=== PATIENT | male | born 1950 | race Caucasian/White ===

== ENCOUNTER 2021-03-05 17:41 | Inpatient (IN) | payer MEDICARE, OTHER ==
[2021-03-05] MEDS: Diltiazem 100 MG in Sodium Chloride 0.9% 100 ML IV SCH (20:03)
--- NOTE | 2021-03-05 20:38 | PN ---
THC Physician - Brief Progress KfjyLZXYKYDBY89/08/2021 20:29[facility] Kaley Ramos, [place] - LOLISN [facility] - LOLISN MOISESALFA NiceDonteDate of Service 03/05/2021 20:29HPI/Events of Note Brief eICU Admit NoteEMR reviwed, H&P pending. ED note reviewed, patient directly admitted [facility].70yo male h/o HTN, DM who presented to ED with SOB and palpitations. Dx with new on set afib with RVR and CHF. Started on diltiazem drip, currently rate controlled on 5. Given Lasix i n ED. I cannot see imaging. TSH at outside ED is normal. Covid neg, s/p vaccine x3.Patient seen on camera: obese older male lying in bed on RA in NAD, able to interact with bedside staff easilyP 80s- 90s irreg 140/89 22Recommend:Follow I/O, consider more diuresis if the patient becomes SOB or require s supplemental oxygen.Cycle troponins.Recheck K and Mg after diuresis.Rate control for goal HR <110.C onsider anticoagulation.Echo.Please contact us if we may be of assistance.Interventions Major-Arrhyth corie - evaluation and management
[2021-03-05] MEDS ORDERED: Glucagon,Human Recombinant 1 MG Vial IM PRN (22:38)
[2021-03-05] MEDS ORDERED: 50% Dextrose in Water 50 ML Syringe IVPUSH PRN (22:38)
--- NOTE | 2021-03-05 22:49 | PCM.HP.2 ---
H&P History of Present Illness - General Date of Service: 03/05/21 Admit Problem/Dx: Admission Diagnosis/Problem Admission Diagnosis/Problem Atrial fibrillation with tachycardic ventricular rate - History of Present Illness Initial Comments - Free Text/Narative: 70 yo male with pmh of hypertension and diabetes who presented with several day history of palpitations and shortness of breath. He reports sneezed hard yesterday and he did have resolutions of palpations shortly but then they returned. He was found to be in atrial fibrilation with rapid ventricular rate in [place] ER. He was placed on diltaizem drip. CT angio was negative for PE but was suggestive of CHF. He was given lovenox and lasix. He was transferred to [place] as no beds were available in [place]. He has had good urine output and his shortness of breath has improved. - Related Data Allergies/Adverse Reactions: Allergies Allergy/AdvReac Type Severity Reaction Status Date / Time No Known Allergies Allergy Verified 03/05/21 09:04 [facility] Home Medications: Home Meds Lisinopril/Hydrochlorothiazide [Lisinopril-Hctz 10-12.5 mg Tab] 10 - 12.5 mg PO DAILY 09/15/18 [History] Niacin 500 mg PO DAILY 09/15/18 [History] Tamsulosin HCl 0.4 mg PO DAILY 09/15/18 [History] metFORMIN HCl [Metformin HCl] 1,000 mg PO BID 03/05/21 [History] Past Medical History HEENT History: Reports: Impaired Vision Other HEENT History: wears eyeglasses. Cardiovascular History: Reports: Arrhythmia, High Cholesterol, Hypertension Respiratory History: Reports: None Gastrointestinal History: Reports: None Genitourinary History: Reports: Prostate Disorder [employer] History: Reports: None Musculoskeletal History: Reports: Gout Psychiatric History: Reports: None Endocrine/Metabolic History: Reports: Diabetes, Type II Hematologic History: Reports: None Immunologic History: Reports: None Oncologic (Cancer) History: Reports: None Dermatologic History: Reports: None - Infectious Disease History Infectious Disease History: Reports: Chicken Pox, Measles, Mumps, Novel Coronavirus - Past Surgical History Head Surgeries/Procedures: Reports: None Cardiovascular Surgical History: Reports: None Respiratory Surgical History: Reports: None GI Surgical History: Reports: None Male Surgical History: Reports: None Endocrine Surgical History: Reports: None Neurological Surgical History: Reports: C-Spine Musculoskeletal Surgical History: Reports: Other (See Below) Other Musculoskeletal Surgeries/Procedures:: neck surgery. Oncologic Surgical History: Reports: None Social & Family History - Tobacco Use Tobacco Use Status *Q: Never Tobacco User Second Hand Smoke Exposure: No - Caffeine Use Caffeine Use: Reports: Coffee Other Caffeine Use: 2 cups/daily - Recreational Drug Use Recreational Drug Use: No H&P Review of Systems - Review of Systems: Review Of Systems: Comprehensive ROS is negative, except as noted in HPI. Exam - Exam Exam: See Below - Vital Signs Vital Signs: Last Vital Signs Temp 36.4 C 03/05/21 19:24 Pulse Resp BP Pulse Ox Weight: 110.268 kg - Exam General: Alert, Oriented HEENT: Mucosa Moist & [place] Neck: Supple Lungs: Clear to Auscultation, Normal Respiratory Effort Cardiovascular: Regular Rate, Irregular Rhythm GI/Abdominal Exam: Normal Bowel Sounds, Soft, Non-Tender Extremities: Non-Tender, Pedal Edema (minimal) Skin: Warm, Dry, Intact Neurological: Cranial Nerves Intact. No: Focal Deficit - Patient Data Lab Results Last 24 hrs: Laboratory Results - last 24 hr 03/05/21 Range/Units 22:30 POC Glucose 117 H (70-99) mg/dL Sepsis Event Note - Evaluation Sepsis Screening Result: No Definite Risk - Focused Exam Vital Signs: Vital Signs Temp 03/05/21 19:24 36.4 C - Problem List (1) CHF (congestive heart failure) SNOMED Code(s): 19681058 ICD Code: I50.9 - HEART FAILURE, UNSPECIFIED Status: Acute Current Visit: Yes (2) Atrial fibrillation with RVR SNOMED Code(s): 809746144514049 ICD Code: I48.91 - UNSPECIFIED ATRIAL FIBRILLATION Status: Acute Current Visit: Yes (3) Diabetes SNOMED Code(s): 75441767 ICD Code: E11.9 - TYPE 2 DIABETES MELLITUS WITHOUT COMPLICATIONS Status: Chronic Current Visit: Yes (4) Hypertension SNOMED Code(s): 07871017 ICD Code: I10 - ESSENTIAL (PRIMARY) HYPERTENSION Status: Chronic Current Visit: Yes Problem List Initiated/Reviewed/Updated: Yes Orders Last 24hrs: Active Orders 24 hr Category Date Time Status Patient Status [ADT] Routine ADT 03/05/21 22:39 Active Blood Glucose Check, Bedside [RC] TIDAC Care 03/05/21 22:38 Active Oxygen Therapy [RC] PRN Care 03/05/21 22:39 Active VTE/DVT Education [RC] PER UNIT ROUTINE Care 03/05/21 22:39 Active Vital Signs [RC] Q4H Care 03/05/21 22:39 Active [place] [employer] Diet [DIET] Diet 03/05/21 Breakfast Active Echo Comp wo Cont [US] Routine Exams 03/05/21 22:41 Ordered BASIC METABOLIC PANEL,BMP [CHEM] AM Lab 03/06/21 05:11 Ordered BASIC METABOLIC PANEL,BMP [CHEM] Routine Lab 03/05/21 22:37 Ordered CBC WITH AUTO DIFF [HEME] AM Lab 03/06/21 05:11 Ordered MAGNESIUM [CHEM] AM Lab 03/06/21 05:11 Ordered MAGNESIUM [CHEM] Routine Lab 03/05/21 22:37 Ordered Dextrose 50% in Water Med 03/05/21 22:38 Active 50 ml IVPUSH ASDIRECTED PRN Diltiazem [Cardizem] 100 mg Med 03/05/21 19:45 Active Sodium Chloride 0.9% [Normal Saline AdvBag] 100 ml IV ASDIRECTED Enoxaparin [Lovenox] Med 03/06/21 03:00 Ordered 110 mg SUBCUT Q12H Glucagon,Human Recombinant [GlucaGen] Med 03/05/21 22:38 Active 1 mg IM ASDIRECTED PRN Insulin Aspart [NovoLOG] Med 03/06/21 07:30 Active See Protocol SUBCUT TIDAC Resuscitation Status Routine Resus Stat 03/05/21 22:39 Ordered Medication Orders Dextrose/Water (50% Dextrose In Water 50 Ml Syringe) 50 ml IVPUSH ASDIRECTED PRN PRN Reason: Hypoglycemia Enoxaparin Sodium (Enoxaparin 60 Mg/0.6 Ml Syringe) 120 mg SUBCUT Q12H ASHLEY Glucagon (Glucagon,Human Recombinant 1 Mg Vial) 1 mg IM ASDIRECTED PRN PRN Reason: Hypoglycemia Diltiazem HCl 100 mg/ Sodium (Chloride) 100 mls @ 5 mls/hr IV ASDIRECTED ASHLEY; Protocol Last Titration: 03/05/21 20:37 Dose: 7.5 mg/hr, 7.5 mls/hr Documented by: Admin: 03/05/21 20:03 Dose: 10 mg/hr, 10 mls/hr Documented by: SAGAR Insulin Aspart (Insulin Aspart 100 Units/Ml 3 Ml Pen) [facility]; Protocol Assessment/Plan Comment:: 70 yo male admitted for atrial fibrillation with RVR and new onset CHF Atiral fibrillation with RVR: continue diltiazem drip, Lovenox CHF: diuresis with Lasix, echocardiogram ordered DM: on ssi
[2021-03-05 23:33] LABS: CARBON DIOXIDE,CO2 27.6 mmol/L (21.0-32.0); POTASSIUM,K 3.5 mmol/L (3.5-5.1)
[2021-03-06] MEDS ORDERED: Enoxaparin 60 MG/0.6 ML Syringe SUBCUT SCH (03:00)
[2021-03-06 07:22] LABS: BLOOD UREA NITROGEN,BUN 18 mg/dL (7.0-18.0); CARBON DIOXIDE,CO2 27.1 mmol/L (21.0-32.0); CHLORIDE,CL 104 mmol/L (98-107); GLUCOSE RANDOM 127 mg/dL (74-106); POTASSIUM,K 3.5 mmol/L (3.5-5.1); SODIUM,NA 141 mmol/L (136-148)
[2021-03-06] MEDS: Insulin Aspart 100 Units/ML 3 ML Pen SUBCUT SCH ×3 (07:54→16:46)
[2021-03-06] MEDS ORDERED: Potassium Chloride 20 MEQ Tab.ER PO ONE (09:48)
[2021-03-06] MEDS: Diltiazem 100 MG in Sodium Chloride 0.9% 100 ML IV SCH (13:07)
[2021-03-06] MEDS ORDERED: Furosemide 40 MG/4 ML VIAL IVPUSH ONE (13:26)
--- NOTE | 2021-03-06 13:37 | PCM.PN ---
- General Info Date of Service: 03/06/21 - Review of Systems Systems Review Comment:: shortness of breath and palpitations have improved - Patient Data Vitals - Most Recent: Last Vital Signs Temp 36.0 C L 03/06/21 04:00 Pulse Resp 25 H 03/06/21 11:00 BP 163/104 H 03/06/21 11:00 Pulse Ox 93 L 03/06/21 11:00 Weight - Most Recent: 110.268 kg I&O - Last 24 Hours: Intake & Output 03/05/21 03/06/21 03/06/21 22:59 06:59 14:59 Intake Total 460 Output Total 850 375 Balance -850 85 Lab Results Last 24 Hours: Laboratory Results - last 24 hr 03/05/21 03/05/21 03/06/21 Range/Units 22:30 23:01 05:35 WBC 7.53 (4.0-11.0) K/uL RBC 5.08 (4.50-5.90) M/uL Hgb 15.5 (13.0-17.0) g/dL Hct 45.3 (38.0-50.0) % MCV 89.2 (80.0-98.0) fL MCH 30.5 (27.0-32.0) pg MCHC 34.2 (31.0-37.0) g/dL RDW Std Deviation 44.2 (28.0-62.0) fl RDW Coeff of Ozzy 13 (11.0-15.0) % Plt Count 202 (150-400) K/uL MPV 10.60 (7.40-12.00) fL Neut % (Auto) 62.5 (48.0-80.0) % Lymph % (Auto) 24.7 (16.0-40.0) % [place] % (Auto) 11.2 (0.0-15.0) % Eos % (Auto) 0.9 (0.0-7.0) % Baso % (Auto) 0.7 (0.0-1.5) % Neut # (Auto) 4.7 (1.4-5.7) K/uL Lymph # (Auto) 1.9 (0.6-2.4) K/uL [place] # (Auto) 0.8 (0.0-0.8) K/uL Eos # (Auto) 0.1 (0.0-0.7) K/uL Baso # (Auto) 0.1 (0.0-0.1) K/uL Nucleated RBC % 0.0 /100WBC Nucleated RBCs # 0 K/uL Sodium 141 (136-148) mmol/L Potassium 3.5 (3.5-5.1) mmol/L Chloride 104 (98-107) mmol/L Carbon Dioxide 27.6 (21.0-32.0) mmol/L BUN 18 (7.0-18.0) mg/dL Creatinine 1.2 (0.8-1.3) mg/dL Est Cr Clr Drug Dosing 59.14 mL/min Estimated GFR (MDRD) 59.9 ml/min Glucose 160 H (74-106) mg/dL POC Glucose 117 H (70-99) mg/dL Calcium 8.4 L (8.5-10.1) mg/dL Magnesium 2.0 (1.8-2.4) mg/dL 03/06/21 03/06/21 03/06/21 Range/Units 05:35 07:16 11:17 WBC (4.0-11.0) K/uL RBC (4.50-5.90) M/uL Hgb (13.0-17.0) g/dL Hct (38.0-50.0) % MCV (80.0-98.0) fL MCH (27.0-32.0) pg MCHC (31.0-37.0) g/dL RDW Std Deviation (28.0-62.0) fl RDW Coeff of Ozzy (11.0-15.0) % Plt Count (150-400) K/uL MPV (7.40-12.00) fL Neut % (Auto) (48.0-80.0) % Lymph % (Auto) (16.0-40.0) % [place] % (Auto) (0.0-15.0) % Eos % (Auto) (0.0-7.0) % Baso % (Auto) (0.0-1.5) % Neut # (Auto) (1.4-5.7) K/uL Lymph # (Auto) (0.6-2.4) K/uL [place] # (Auto) (0.0-0.8) K/uL Eos # (Auto) (0.0-0.7) K/uL Baso # (Auto) (0.0-0.1) K/uL Nucleated RBC % /100WBC Nucleated RBCs # K/uL Sodium 141 (136-148) mmol/L Potassium 3.5 (3.5-5.1) mmol/L Chloride 104 (98-107) mmol/L Carbon Dioxide 27.1 (21.0-32.0) mmol/L BUN 18 (7.0-18.0) mg/dL Creatinine 1.1 (0.8-1.3) mg/dL Est Cr Clr Drug Dosing 64.52 mL/min Estimated GFR (MDRD) > 60.0 ml/min Glucose 127 H (74-106) mg/dL POC Glucose 130 H 138 H (70-99) mg/dL Calcium 8.6 (8.5-10.1) mg/dL Magnesium 2.1 (1.8-2.4) mg/dL Med Orders - Current: Current Medications Dextrose/Water (50% Dextrose In Water 50 Ml Syringe) 50 ml IVPUSH ASDIRECTED PRN PRN Reason: Hypoglycemia Enoxaparin Sodium (Enoxaparin 150 Mg/1 Ml Syringe) 110 mg SUBCUT Q12H ASHLEY Furosemide (Furosemide 40 Mg/4 Ml Vial) 40 mg IVPUSH NOW ONE Stop: 03/06/21 13:27 Glucagon (Glucagon,Human Recombinant 1 Mg Vial) 1 mg IM ASDIRECTED PRN PRN Reason: Hypoglycemia Diltiazem HCl 100 mg/ Sodium (Chloride) 100 mls @ 5 mls/hr IV ASDIRECTED ASHLEY; Protocol Last Admin: 03/06/21 13:07 Dose: 5 mg/hr, 5 mls/hr Documented by: Insulin Aspart (Insulin Aspart 100 Units/Ml 3 Ml Pen) 0 unit SUBCUT TIDAC ASHLEY; Protocol Last Admin: 03/06/21 11:38 Dose: Not Given Documented by: Metoprolol Tartrate (Metoprolol Tartrate 25 Mg Tab) 25 mg PO Q12H ASHLEY Discontinued Medications Enoxaparin Sodium (Enoxaparin 60 Mg/0.6 Ml Syringe) 120 mg SUBCUT Q12H ASHLEY Last Admin: 03/06/21 04:25 Dose: 120 mg Documented by: Potassium Chloride (Potassium Chloride 20 Meq Tab.Er) 40 meq PO ONETIME ONE Stop: 03/06/21 09:49 Last Admin: 03/06/21 11:52 Dose: 40 meq Documented by: - Exam General: Alert, Oriented Neck: Supple Lungs: Clear to Auscultation, Normal Respiratory Effort Cardiovascular: Regular Rate, Irregular Rhythm GI/Abdominal Exam: Normal Bowel Sounds, Soft, Non-Tender Extremities: Non-Tender, Pedal Edema (mild) Skin: Warm, Dry, Intact - Patient Data Lab Results Last 24 hrs: Laboratory Results - last 24 hr 03/05/21 03/05/21 03/06/21 Range/Units 22:30 23:01 05:35 WBC 7.53 (4.0-11.0) K/uL RBC 5.08 (4.50-5.90) M/uL Hgb 15.5 (13.0-17.0) g/dL Hct 45.3 (38.0-50.0) % MCV 89.2 (80.0-98.0) fL MCH 30.5 (27.0-32.0) pg MCHC 34.2 (31.0-37.0) g/dL RDW Std Deviation 44.2 (28.0-62.0) fl RDW Coeff of Ozzy 13 (11.0-15.0) % Plt Count 202 (150-400) K/uL MPV 10.60 (7.40-12.00) fL Neut % (Auto) 62.5 (48.0-80.0) % Lymph % (Auto) 24.7 (16.0-40.0) % [place] % (Auto) 11.2 (0.0-15.0) % Eos % (Auto) 0.9 (0.0-7.0) % Baso % (Auto) 0.7 (0.0-1.5) % Neut # (Auto) 4.7 (1.4-5.7) K/uL Lymph # (Auto) 1.9 (0.6-2.4) K/uL [place] # (Auto) 0.8 (0.0-0.8) K/uL Eos # (Auto) 0.1 (0.0-0.7) K/uL Baso # (Auto) 0.1 (0.0-0.1) K/uL Nucleated RBC % 0.0 /100WBC Nucleated RBCs # 0 K/uL Sodium 141 (136-148) mmol/L Potassium 3.5 (3.5-5.1) mmol/L Chloride 104 (98-107) mmol/L Carbon Dioxide 27.6 (21.0-32.0) mmol/L BUN 18 (7.0-18.0) mg/dL Creatinine 1.2 (0.8-1.3) mg/dL Est Cr Clr Drug Dosing 59.14 mL/min Estimated GFR (MDRD) 59.9 ml/min Glucose 160 H (74-106) mg/dL POC Glucose 117 H (70-99) mg/dL Calcium 8.4 L (8.5-10.1) mg/dL Magnesium 2.0 (1.8-2.4) mg/dL 03/06/21 03/06/21 03/06/21 Range/Units 05:35 07:16 11:17 WBC (4.0-11.0) K/uL RBC (4.50-5.90) M/uL Hgb (13.0-17.0) g/dL Hct (38.0-50.0) % MCV (80.0-98.0) fL MCH (27.0-32.0) pg MCHC (31.0-37.0) g/dL RDW Std Deviation (28.0-62.0) fl RDW Coeff of Ozzy (11.0-15.0) % Plt Count (150-400) K/uL MPV (7.40-12.00) fL Neut % (Auto) (48.0-80.0) % Lymph % (Auto) (16.0-40.0) % [place] % (Auto) (0.0-15.0) % Eos % (Auto) (0.0-7.0) % Baso % (Auto) (0.0-1.5) % Neut # (Auto) (1.4-5.7) K/uL Lymph # (Auto) (0.6-2.4) K/uL [place] # (Auto) (0.0-0.8) K/uL Eos # (Auto) (0.0-0.7) K/uL Baso # (Auto) (0.0-0.1) K/uL Nucleated RBC % /100WBC Nucleated RBCs # K/uL Sodium 141 (136-148) mmol/L Potassium 3.5 (3.5-5.1) mmol/L Chloride 104 (98-107) mmol/L Carbon Dioxide 27.1 (21.0-32.0) mmol/L BUN 18 (7.0-18.0) mg/dL Creatinine 1.1 (0.8-1.3) mg/dL Est Cr Clr Drug Dosing 64.52 mL/min Estimated GFR (MDRD) > 60.0 ml/min Glucose 127 H (74-106) mg/dL POC Glucose 130 H 138 H (70-99) mg/dL Calcium 8.6 (8.5-10.1) mg/dL Magnesium 2.1 (1.8-2.4) mg/dL Result Diagrams: 03/06/21 05:35 03/06/21 05:35 Sepsis Event Note - Evaluation Sepsis Screening Result: No Definite Risk - Focused Exam Vital Signs: Vital Signs Temp Resp BP Pulse Ox 03/06/21 11:00 25 H 163/104 H 93 L 03/06/21 10:00 23 H 148/101 H 94 L 03/06/21 09:00 27 H 168/98 H 95 03/06/21 08:00 22 H 142/103 H 91 L 03/06/21 04:00 36.0 C L 24 H 142/85 H 92 L - Problem List & Annotations (1) CHF (congestive heart failure) SNOMED Code(s): 94602383 Code(s): I50.9 - HEART FAILURE, UNSPECIFIED Status: Acute Current Visit: No Qualifiers: Heart failure type: unspecified Heart failure chronicity: unspecified Qualified Code(s): I50.9 - Heart failure, unspecified (2) Atrial fibrillation with RVR SNOMED Code(s): 287865167154373 Code(s): I48.91 - UNSPECIFIED ATRIAL FIBRILLATION Status: Acute Current Visit: No (3) Diabetes SNOMED Code(s): 14894277 Code(s): E11.9 - TYPE 2 DIABETES MELLITUS WITHOUT COMPLICATIONS Status: Chronic Current Visit: Yes (4) Hypertension SNOMED Code(s): 56439614 Code(s): I10 - ESSENTIAL (PRIMARY) HYPERTENSION Status: Chronic Current Visit: Yes - Problem List Review Problem List Initiated/Reviewed/Updated: Yes - My Orders Last 24 Hours: My Active Orders 03/05/21 19:45 Diltiazem [Cardizem] 100 mg Sodium Chloride 0.9% [Normal Saline AdvBag] 100 ml IV ASDIRECTED 03/05/21 22:38 Blood Glucose Check, Bedside [RC] TIDAC Dextrose 50% in Water 50 ml IVPUSH ASDIRECTED PRN Glucagon,Human Recombinant [GlucaGen] 1 mg IM ASDIRECTED PRN 03/05/21 22:39 Patient Status [ADT] Routine Oxygen Therapy [RC] PRN VTE/DVT Education [RC] PER UNIT ROUTINE Vital Signs [RC] Q1H Resuscitation Status Routine 03/06/21 07:30 Insulin Aspart [NovoLOG] See Protocol SUBCUT TIDAC 03/06/21 13:26 Furosemide [Lasix] 40 mg IVPUSH NOW ONE 03/06/21 13:30 Metoprolol Tartrate [Lopressor] 25 mg PO Q12H 03/06/21 15:00 Enoxaparin [Lovenox] 110 mg SUBCUT Q12H 03/06/21 22:41 Echo Comp wo Cont [US] Routine - Plan Plan:: 70 yo male admitted for atrial fibrillation with RVR and new onset CHF Atiral fibrillation with RVR: continue diltiazem drip, Lovenox, will start oral metoprolol CHF: diuresis with Lasix, echocardiogram ordered DM: on ssi
[2021-03-06] MEDS: Metoprolol Tartrate 25 MG Tab PO SCH ×2 (14:30→20:59)
[2021-03-06] MEDS: Enoxaparin 150 MG/1 ML Syringe SUBCUT SCH (14:43)
[2021-03-06] MEDS ORDERED: Metoprolol Succinate 25 MG Tab.ER PO ONE (16:57)
[2021-03-06] MEDS ORDERED: Metoprolol Tartrate 25 MG Tab PO ONE (17:02)
[2021-03-07] MEDS: Diltiazem 100 MG in Sodium Chloride 0.9% 100 ML IV SCH (01:13)
[2021-03-07] MEDS: Enoxaparin 150 MG/1 ML Syringe SUBCUT SCH ×2 (03:51→15:00)
[2021-03-07] MEDS ORDERED: Metoprolol Tartrate 25 MG Tab PO SCH (08:00)
[2021-03-07 08:18] LABS: BLOOD UREA NITROGEN,BUN 20 mg/dL (7.0-18.0); CARBON DIOXIDE,CO2 28.8 mmol/L (21.0-32.0); CHLORIDE,CL 103 mmol/L (98-107); GLUCOSE RANDOM 124 mg/dL (74-106); POTASSIUM,K 4.4 mmol/L (3.5-5.1); SODIUM,NA 141 mmol/L (136-148)
[2021-03-07] MEDS: Insulin Aspart 100 Units/ML 3 ML Pen SUBCUT SCH ×3 (08:34→17:30)
[2021-03-07] MEDS ORDERED: Furosemide 40 MG Tab PO ONE (09:08)
[2021-03-07] MEDS ORDERED: Metoprolol Tartrate 25 MG Tab PO ONE (12:33)
--- NOTE | 2021-03-07 12:35 | PCM.PN ---
- General Info Date of Service: 03/07/21 - Review of Systems Systems Review Comment:: no palpitations, no shortness of breath - Patient Data Vitals - Most Recent: Last Vital Signs Temp 36.4 C 03/07/21 11:00 Pulse 93 03/07/21 08:34 Resp 24 H 03/07/21 11:00 BP 129/94 H 03/07/21 11:00 Pulse Ox 92 L 03/07/21 11:00 Weight - Most Recent: 110.268 kg I&O - Last 24 Hours: Intake & Output 03/06/21 03/07/21 03/07/21 22:59 06:59 14:59 Intake Total 150 50 60 Output Total 375 125 500 Balance -225 -20 -440 Lab Results Last 24 Hours: Laboratory Results - last 24 hr 03/06/21 03/07/21 03/07/21 Range/Units 16:41 07:47 07:47 WBC 8.24 (4.0-11.0) K/uL RBC 5.45 (4.50-5.90) M/uL Hgb 17.0 (13.0-17.0) g/dL Hct 48.8 (38.0-50.0) % MCV 89.5 (80.0-98.0) fL MCH 31.2 (27.0-32.0) pg MCHC 34.8 (31.0-37.0) g/dL RDW Std Deviation 43.3 (28.0-62.0) fl RDW Coeff of Ozzy 13 (11.0-15.0) % Plt Count 194 (150-400) K/uL MPV 10.50 (7.40-12.00) fL Neut % (Auto) 62.4 (48.0-80.0) % Lymph % (Auto) 24.8 (16.0-40.0) % [place] % (Auto) 10.9 (0.0-15.0) % Eos % (Auto) 1.3 (0.0-7.0) % Baso % (Auto) 0.6 (0.0-1.5) % Neut # (Auto) 5.1 (1.4-5.7) K/uL Lymph # (Auto) 2.0 (0.6-2.4) K/uL [place] # (Auto) 0.9 H (0.0-0.8) K/uL Eos # (Auto) 0.1 (0.0-0.7) K/uL Baso # (Auto) 0.1 (0.0-0.1) K/uL Nucleated RBC % 0.0 /100WBC Nucleated RBCs # 0 K/uL Sodium 141 (136-148) mmol/L Potassium 4.4 (3.5-5.1) mmol/L Chloride 103 (98-107) mmol/L Carbon Dioxide 28.8 (21.0-32.0) mmol/L BUN 20 H (7.0-18.0) mg/dL Creatinine 1.1 (0.8-1.3) mg/dL Est Cr Clr Drug Dosing 64.52 mL/min Estimated GFR (MDRD) > 60.0 ml/min Glucose 124 H (74-106) mg/dL POC Glucose 129 H (70-99) mg/dL Calcium 9.0 (8.5-10.1) mg/dL 03/07/21 Range/Units 08:31 WBC (4.0-11.0) K/uL RBC (4.50-5.90) M/uL Hgb (13.0-17.0) g/dL Hct (38.0-50.0) % MCV (80.0-98.0) fL MCH (27.0-32.0) pg MCHC (31.0-37.0) g/dL RDW Std Deviation (28.0-62.0) fl RDW Coeff of Ozzy (11.0-15.0) % Plt Count (150-400) K/uL MPV (7.40-12.00) fL Neut % (Auto) (48.0-80.0) % Lymph % (Auto) (16.0-40.0) % [place] % (Auto) (0.0-15.0) % Eos % (Auto) (0.0-7.0) % Baso % (Auto) (0.0-1.5) % Neut # (Auto) (1.4-5.7) K/uL Lymph # (Auto) (0.6-2.4) K/uL [place] # (Auto) (0.0-0.8) K/uL Eos # (Auto) (0.0-0.7) K/uL Baso # (Auto) (0.0-0.1) K/uL Nucleated RBC % /100WBC Nucleated RBCs # K/uL Sodium (136-148) mmol/L Potassium (3.5-5.1) mmol/L Chloride (98-107) mmol/L Carbon Dioxide (21.0-32.0) mmol/L BUN (7.0-18.0) mg/dL Creatinine (0.8-1.3) mg/dL Est Cr Clr Drug Dosing mL/min Estimated GFR (MDRD) ml/min Glucose (74-106) mg/dL POC Glucose 110 H (70-99) mg/dL Calcium (8.5-10.1) mg/dL Med Orders - Current: Current Medications Dextrose/Water (50% Dextrose In Water 50 Ml Syringe) 50 ml IVPUSH ASDIRECTED PRN PRN Reason: Hypoglycemia Enoxaparin Sodium (Enoxaparin 150 Mg/1 Ml Syringe) 110 mg SUBCUT Q12H [facility] Last Admin: 03/07/21 03:51 Dose: 110 mg Documented by: Glucagon (Glucagon,Human Recombinant 1 Mg Vial) 1 mg IM ASDIRECTED PRN PRN Reason: Hypoglycemia Diltiazem HCl 100 mg/ Sodium (Chloride) 100 mls @ 5 mls/hr IV ASDIRECTED [facility]; P rotocol Last Admin: 03/07/21 01:13 Dose: 5 mg/hr, 5 mls/hr Documented by: Insulin Aspart (Insulin Aspart 100 Units/Ml 3 Ml Pen) 0 unit SUBCUT TIDAC [facility]; Protocol Last Admin: 03/07/21 08:34 Dose: Not Given Documented by: Metoprolol Tartrate (Metoprolol Tartrate 25 Mg Tab) 50 mg PO Q12H [facility] Last Admin: 03/07/21 08:34 Dose: 50 mg Documented by: Discontinued Medications Enoxaparin Sodium (Enoxaparin 60 Mg/0.6 Ml Syringe) 120 mg SUBCUT Q12H [facility] Last Admin: 03/06/21 04:25 Dose: 120 mg Documented by: Furosemide (Furosemide 40 Mg/4 Ml Vial) 40 mg IVPUSH NOW ONE Stop: 03/06/21 13:27 Last Admin: 03/06/21 14:15 Dose: 40 mg Documented by: Furosemide (Furosemide 40 Mg Tab) 40 mg PO ONETIME ONE Stop: 03/07/21 09:09 Last Admin: 03/07/21 11:31 Dose: 40 mg Documented by: Metoprolol Tartrate (Metoprolol Tartrate 25 Mg Tab) 25 mg PO BID [facility] Last Admin: 03/06/21 20:59 Dose: 25 mg Documented by: Metoprolol Tartrate (Metoprolol Tartrate 25 Mg Tab) 25 mg PO ONETIME ONE Stop: 03/06/21 17:03 Last Admin: 03/06/21 17:16 Dose: 25 mg Documented by: Potassium Chloride (Potassium Chloride 20 Meq Tab.Er) 40 meq PO ONETIME ONE Stop: 03/06/21 09:49 Last Admin: 03/06/21 11:52 Dose: 40 meq Documented by: - Exam General: Alert, Oriented Neck: Supple Lungs: Clear to Auscultation, Normal Respiratory Effort Cardiovascular: Regular Rate, Irregular Rhythm GI/Abdominal Exam: Normal Bowel Sounds, Soft, Non-Tender Extremities: Non-Tender, No Pedal Edema Skin: Warm, Dry, Intact Neurological: No New Focal Deficit - Patient Data Lab Results Last 24 hrs: Laboratory Results - last 24 hr 03/06/21 03/07/21 03/07/21 Range/Units 16:41 07:47 07:47 WBC 8.24 (4.0-11.0) K/uL RBC 5.45 (4.50-5.90) M/uL Hgb 17.0 (13.0-17.0) g/dL Hct 48.8 (38.0-50.0) % MCV 89.5 (80.0-98.0) fL MCH 31.2 (27.0-32.0) pg MCHC 34.8 (31.0-37.0) g/dL RDW Std Deviation 43.3 (28.0-62.0) fl RDW Coeff of Ozzy 13 (11.0-15.0) % Plt Count 194 (150-400) K/uL MPV 10.50 (7.40-12.00) fL Neut % (Auto) 62.4 (48.0-80.0) % Lymph % (Auto) 24.8 (16.0-40.0) % [place] % (Auto) 10.9 (0.0-15.0) % Eos % (Auto) 1.3 (0.0-7.0) % Baso % (Auto) 0.6 (0.0-1.5) % Neut # (Auto) 5.1 (1.4-5.7) K/uL Lymph # (Auto) 2.0 (0.6-2.4) K/uL [place] # (Auto) 0.9 H (0.0-0.8) K/uL Eos # (Auto) 0.1 (0.0-0.7) K/uL Baso # (Auto) 0.1 (0.0-0.1) K/uL Nucleated RBC % 0.0 /100WBC Nucleated RBCs # 0 K/uL Sodium 141 (136-148) mmol/L Potassium 4.4 (3.5-5.1) mmol/L Chloride 103 (98-107) mmol/L Carbon Dioxide 28.8 (21.0-32.0) mmol/L BUN 20 H (7.0-18.0) mg/dL Creatinine 1.1 (0.8-1.3) mg/dL Est Cr Clr Drug Dosing 64.52 mL/min Estimated GFR (MDRD) > 60.0 ml/min Glucose 124 H (74-106) mg/dL POC Glucose 129 H (70-99) mg/dL Calcium 9.0 (8.5-10.1) mg/dL 03/07/21 Range/Units 08:31 WBC (4.0-11.0) K/uL RBC (4.50-5.90) M/uL Hgb (13.0-17.0) g/dL Hct (38.0-50.0) % MCV (80.0-98.0) fL MCH (27.0-32.0) pg MCHC (31.0-37.0) g/dL RDW Std Deviation (28.0-62.0) fl RDW Coeff of Ozzy (11.0-15.0) % Plt Count (150-400) K/uL MPV (7.40-12.00) fL Neut % (Auto) (48.0-80.0) % Lymph % (Auto) (16.0-40.0) % [place] % (Auto) (0.0-15.0) % Eos % (Auto) (0.0-7.0) % Baso % (Auto) (0.0-1.5) % Neut # (Auto) (1.4-5.7) K/uL Lymph # (Auto) (0.6-2.4) K/uL [place] # (Auto) (0.0-0.8) K/uL Eos # (Auto) (0.0-0.7) K/uL Baso # (Auto) (0.0-0.1) K/uL Nucleated RBC % /100WBC Nucleated RBCs # K/uL Sodium (136-148) mmol/L Potassium (3.5-5.1) mmol/L Chloride (98-107) mmol/L Carbon Dioxide (21.0-32.0) mmol/L BUN (7.0-18.0) mg/dL Creatinine (0.8-1.3) mg/dL Est Cr Clr Drug Dosing mL/min Estimated GFR (MDRD) ml/min Glucose (74-106) mg/dL POC Glucose 110 H (70-99) mg/dL Calcium (8.5-10.1) mg/dL Result Diagrams: 03/07/21 07:47 03/07/21 07:47 Sepsis Event Note - Evaluation Sepsis Screening Result: No Definite Risk - Focused Exam Vital Signs: Vital Signs Temp Pulse Resp BP BP Pulse Ox 03/07/21 11:00 36.4 C 24 H 129/94 H 92 L 03/07/21 10:00 26 H 102/54 L 92 L 03/07/21 08:55 36.4 C 11 L 131/91 H 93 L 03/07/21 08:34 93 148/99 H 03/07/21 08:00 36.4 C 24 H 144/96 H 92 L 03/07/21 07:00 36.4 C 14 150/97 H 93 L 03/07/21 06:00 18 144/98 H 91 L 03/07/21 05:00 23 H 146/99 H 92 L 03/07/21 04:00 36.4 C 16 153/102 H 93 L 03/07/21 03:00 22 H 147/95 H 95 03/07/21 02:00 21 H 150/103 H 93 L 03/07/21 01:00 24 H 144/106 H 94 L - Problem List & Annotations (1) CHF (congestive heart failure) SNOMED Code(s): 59654348 Code(s): I50.9 - HEART FAILURE, UNSPECIFIED Status: Acute Current Visit: No Qualifiers: Heart failure type: unspecified Heart failure chronicity: unspecified Qualified Code(s): I50.9 - Heart failure, unspecified (2) Atrial fibrillation with RVR SNOMED Code(s): 689359446235355 Code(s): I48.91 - UNSPECIFIED ATRIAL FIBRILLATION Status: Acute Current Visit: No (3) Diabetes SNOMED Code(s): 77637612 Code(s): E11.9 - TYPE 2 DIABETES MELLITUS WITHOUT COMPLICATIONS Status: Chronic Current Visit: Yes (4) Hypertension SNOMED Code(s): 57013388 Code(s): I10 - ESSENTIAL (PRIMARY) HYPERTENSION Status: Chronic Current Visit: Yes - Problem List Review Problem List Initiated/Reviewed/Updated: Yes - My Orders Last 24 Hours: My Active Orders 03/06/21 15:00 Enoxaparin [Lovenox] 110 mg SUBCUT Q12H 03/06/21 22:41 Echo Comp wo Cont [US] Routine 03/07/21 08:00 Metoprolol Tartrate [Lopressor] 50 mg PO Q12H 03/08/21 05:11 BASIC METABOLIC PANEL,BMP [CHEM] AM CBC WITH AUTO DIFF [HEME] AM - Plan Plan:: 70 yo male admitted for atrial fibrillation with RVR and new onset CHF Atiral fibrillation with RVR: continue diltiazem drip, Lovenox, will titrate up oral metoprolol CHF: diuresis with Lasix, echocardiogram ordered DM: on ssi
[2021-03-07] MEDS: Metoprolol Tartrate 50 MG Tab PO SCH (19:20)
[2021-03-08] MEDS: Metoprolol Tartrate 50 MG Tab PO SCH (06:09)
[2021-03-08] MEDS: Enoxaparin 150 MG/1 ML Syringe SUBCUT SCH ×2 (06:09→15:17)
[2021-03-08 06:48] LABS: BLOOD UREA NITROGEN,BUN 25 mg/dL (7.0-18.0); CARBON DIOXIDE,CO2 28.4 mmol/L (21.0-32.0); CHLORIDE,CL 104 mmol/L (98-107); GLUCOSE RANDOM 114 mg/dL (74-106); SODIUM,NA 140 mmol/L (136-148)
[2021-03-08] MEDS: Insulin Aspart 100 Units/ML 3 ML Pen SUBCUT SCH ×3 (07:57→17:20)
[2021-03-08] MEDS ORDERED: Lisinopril 10 MG Tab PO ONE (09:34)
[2021-03-08] MEDS ORDERED: Furosemide 40 MG Tab PO ONE (11:18)
--- NOTE | 2021-03-08 11:20 | PCM.PN ---
- General Info Date of Service: 03/08/21 - Review of Systems Systems Review Comment:: denies any palpitations, no shortness of breath - Patient Data Vitals - Most Recent: Last Vital Signs Temp 36.6 C 03/08/21 09:00 Pulse 86 03/08/21 06:09 Resp 22 H 03/08/21 09:00 BP 135/107 H 03/08/21 09:00 Pulse Ox 95 03/08/21 09:00 Weight - Most Recent: 107.275 kg I&O - Last 24 Hours: Intake & Output 03/07/21 03/08/21 03/08/21 22:59 06:59 14:59 Intake Total 1300 Output Total 1750 Balance -450 Lab Results Last 24 Hours: Laboratory Results - last 24 hr 03/07/21 03/07/21 03/08/21 Range/Units 13:16 17:18 05:35 WBC 8.64 (4.0-11.0) K/uL RBC 5.35 (4.50-5.90) M/uL Hgb 16.6 (13.0-17.0) g/dL Hct 47.5 (38.0-50.0) % MCV 88.8 (80.0-98.0) fL MCH 31.0 (27.0-32.0) pg MCHC 34.9 (31.0-37.0) g/dL RDW Std Deviation 43.4 (28.0-62.0) fl RDW Coeff of Ozzy 13 (11.0-15.0) % Plt Count 193 (150-400) K/uL MPV 10.60 (7.40-12.00) fL Neut % (Auto) 55.3 (48.0-80.0) % Lymph % (Auto) 30.8 (16.0-40.0) % [place] % (Auto) 11.1 (0.0-15.0) % Eos % (Auto) 2.2 (0.0-7.0) % Baso % (Auto) 0.6 (0.0-1.5) % Neut # (Auto) 4.8 (1.4-5.7) K/uL Lymph # (Auto) 2.7 H (0.6-2.4) K/uL [place] # (Auto) 1.0 H (0.0-0.8) K/uL Eos # (Auto) 0.2 (0.0-0.7) K/uL Baso # (Auto) 0.1 (0.0-0.1) K/uL Nucleated RBC % 0.0 /100WBC Nucleated RBCs # 0 K/uL Sodium (136-148) mmol/L Potassium (3.5-5.1) mmol/L Chloride (98-107) mmol/L Carbon Dioxide (21.0-32.0) mmol/L BUN (7.0-18.0) mg/dL Creatinine (0.8-1.3) mg/dL Est Cr Clr Drug Dosing mL/min Estimated GFR (MDRD) ml/min Glucose (74-106) mg/dL POC Glucose 150 H 97 (70-99) mg/dL Calcium (8.5-10.1) mg/dL 03/08/21 Range/Units 05:35 WBC (4.0-11.0) K/uL RBC (4.50-5.90) M/uL Hgb (13.0-17.0) g/dL Hct (38.0-50.0) % MCV (80.0-98.0) fL MCH (27.0-32.0) pg MCHC (31.0-37.0) g/dL RDW Std Deviation (28.0-62.0) fl RDW Coeff of Ozzy (11.0-15.0) % Plt Count (150-400) K/uL MPV (7.40-12.00) fL Neut % (Auto) (48.0-80.0) % Lymph % (Auto) (16.0-40.0) % [place] % (Auto) (0.0-15.0) % Eos % (Auto) (0.0-7.0) % Baso % (Auto) (0.0-1.5) % Neut # (Auto) (1.4-5.7) K/uL Lymph # (Auto) (0.6-2.4) K/uL [place] # (Auto) (0.0-0.8) K/uL Eos # (Auto) (0.0-0.7) K/uL Baso # (Auto) (0.0-0.1) K/uL Nucleated RBC % /100WBC Nucleated RBCs # K/uL Sodium 140 (136-148) mmol/L Potassium 4.0 (3.5-5.1) mmol/L Chloride 104 (98-107) mmol/L Carbon Dioxide 28.4 (21.0-32.0) mmol/L BUN 25 H (7.0-18.0) mg/dL Creatinine 1.1 (0.8-1.3) mg/dL Est Cr Clr Drug Dosing 64.52 mL/min Estimated GFR (MDRD) > 60.0 ml/min Glucose 114 H (74-106) mg/dL POC Glucose (70-99) mg/dL Calcium 8.3 L (8.5-10.1) mg/dL Med Orders - Current: Current Medications Dextrose/Water (50% Dextrose In Water 50 Ml Syringe) 50 ml IVPUSH ASDIRECTED PRN PRN Reason: Hypoglycemia Diltiazem HCl (Diltiazem Ir 30 Mg Tab) 30 mg PO Q6HR [facility] Enoxaparin Sodium (Enoxaparin 150 Mg/1 Ml Syringe) 110 mg SUBCUT Q12H [facility] Last Admin: 03/08/21 06:09 Dose: 110 mg Documented by: Furosemide (Furosemide 40 Mg Tab) 40 mg PO ONETIME ONE Stop: 03/08/21 11:19 Glucagon (Glucagon,Human Recombinant 1 Mg Vial) 1 mg IM ASDIRECTED PRN PRN Reason: Hypoglycemia Diltiazem HCl 100 mg/ Sodium (Chloride) 100 mls @ 5 mls/hr IV ASDIRECTED [facility]; Protocol Last Titration: 03/07/21 21:22 Dose: Infused Documented by: Insulin Aspart (Insulin Aspart 100 Units/Ml 3 Ml Pen) 0 unit SUBCUT TIDAC [facility]; Protocol Last Admin: 03/08/21 07:57 Dose: Not Given Documented by: Metoprolol Tartrate (Metoprolol Tartrate 50 Mg Tab) 100 mg PO Q12H [facility] Last Admin: 03/08/21 06:09 Dose: 100 mg Documented by: Discontinued Medications Enoxaparin Sodium (Enoxaparin 60 Mg/0.6 Ml Syringe) 120 mg SUBCUT Q12H [facility] Last Admin: 03/06/21 04:25 Dose: 120 mg Documented by: Furosemide (Furosemide 40 Mg/4 Ml Vial) 40 mg IVPUSH NOW ONE Stop: 03/06/21 13:27 Last Admin: 03/06/21 14:15 Dose: 40 mg Documented by: Furosemide (Furosemide 40 Mg Tab) 40 mg PO ONETIME ONE Stop: 03/07/21 09:09 Last Admin: 03/07/21 11:31 Dose: 40 mg Documented by: Lisinopril (Lisinopril 10 Mg Tab) 10 mg PO ONETIME ONE Stop: 03/08/21 09:35 Metoprolol Tartrate (Metoprolol Tartrate 25 Mg Tab) 25 mg PO BID [facility] Last Admin: 03/06/21 20:59 Dose: 25 mg Documented by: Metoprolol Tartrate (Metoprolol Tartrate 25 Mg Tab) 25 mg PO ONETIME ONE Stop: 03/06/21 17:03 Last Admin: 03/06/21 17:16 Dose: 25 mg Documented by: Metoprolol Tartrate (Metoprolol Tartrate 25 Mg Tab) 50 mg PO Q12H [facility] Last Admin: 03/07/21 08:34 Dose: 50 mg Documented by: Metoprolol Tartrate (Metoprolol Tartrate 25 Mg Tab) 25 mg PO ONETIME ONE Stop: 03/07/21 12:34 Last Admin: 03/07/21 13:23 Dose: 25 mg Documented by: Potassium Chloride (Potassium Chloride 20 Meq Tab.Er) 40 meq PO ONETIME ONE Stop: 03/06/21 09:49 Last Admin: 03/06/21 11:52 Dose: 40 meq Documented by: - Exam General: Alert, Oriented Neck: Supple Lungs: Clear to Auscultation, Normal Respiratory Effort Cardiovascular: Irregular Rhythm, Tachycardia GI/Abdominal Exam: Soft, Non-Tender, No Distention Extremities: Non-Tender, No Pedal Edema Skin: Warm, Dry, Intact Neurological: No New Focal Deficit - Patient Data Lab Results Last 24 hrs: Laboratory Results - last 24 hr 03/07/21 03/07/21 03/08/21 Range/Units 13:16 17:18 05:35 WBC 8.64 (4.0-11.0) K/uL RBC 5.35 (4.50-5.90) M/uL Hgb 16.6 (13.0-17.0) g/dL Hct 47.5 (38.0-50.0) % MCV 88.8 (80.0-98.0) fL MCH 31.0 (27.0-32.0) pg MCHC 34.9 (31.0-37.0) g/dL RDW Std Deviation 43.4 (28.0-62.0) fl RDW Coeff of Ozzy 13 (11.0-15.0) % Plt Count 193 (150-400) K/uL MPV 10.60 (7.40-12.00) fL Neut % (Auto) 55.3 (48.0-80.0) % Lymph % (Auto) 30.8 (16.0-40.0) % [place] % (Auto) 11.1 (0.0-15.0) % Eos % (Auto) 2.2 (0.0-7.0) % Baso % (Auto) 0.6 (0.0-1.5) % Neut # (Auto) 4.8 (1.4-5.7) K/uL Lymph # (Auto) 2.7 H (0.6-2.4) K/uL [place] # (Auto) 1.0 H (0.0-0.8) K/uL Eos # (Auto) 0.2 (0.0-0.7) K/uL Baso # (Auto) 0.1 (0.0-0.1) K/uL Nucleated RBC % 0.0 /100WBC Nucleated RBCs # 0 K/uL Sodium (136-148) mmol/L Potassium (3.5-5.1) mmol/L Chloride (98-107) mmol/L Carbon Dioxide (21.0-32.0) mmol/L BUN (7.0-18.0) mg/dL Creatinine (0.8-1.3) mg/dL Est Cr Clr Drug Dosing mL/min Estimated GFR (MDRD) ml/min Glucose (74-106) mg/dL POC Glucose 150 H 97 (70-99) mg/dL Calcium (8.5-10.1) mg/dL 03/08/21 Range/Units 05:35 WBC (4.0-11.0) K/uL RBC (4.50-5.90) M/uL Hgb (13.0-17.0) g/dL Hct (38.0-50.0) % MCV (80.0-98.0) fL MCH (27.0-32.0) pg MCHC (31.0-37.0) g/dL RDW Std Deviation (28.0-62.0) fl RDW Coeff of Ozzy (11.0-15.0) % Plt Count (150-400) K/uL MPV (7.40-12.00) fL Neut % (Auto) (48.0-80.0) % Lymph % (Auto) (16.0-40.0) % [place] % (Auto) (0.0-15.0) % Eos % (Auto) (0.0-7.0) % Baso % (Auto) (0.0-1.5) % Neut # (Auto) (1.4-5.7) K/uL Lymph # (Auto) (0.6-2.4) K/uL [place] # (Auto) (0.0-0.8) K/uL Eos # (Auto) (0.0-0.7) K/uL Baso # (Auto) (0.0-0.1) K/uL Nucleated RBC % /100WBC Nucleated RBCs # K/uL Sodium 140 (136-148) mmol/L Potassium 4.0 (3.5-5.1) mmol/L Chloride 104 (98-107) mmol/L Carbon Dioxide 28.4 (21.0-32.0) mmol/L BUN 25 H (7.0-18.0) mg/dL Creatinine 1.1 (0.8-1.3) mg/dL Est Cr Clr Drug Dosing 64.52 mL/min Estimated GFR (MDRD) > 60.0 ml/min Glucose 114 H (74-106) mg/dL POC Glucose (70-99) mg/dL Calcium 8.3 L (8.5-10.1) mg/dL Result Diagrams: 03/08/21 05:35 03/08/21 05:35 Sepsis Event Note - Evaluation Sepsis Screening Result: No Definite Risk - Focused Exam Vital Signs: Vital Signs Temp Pulse Resp BP BP Pulse Ox 03/08/21 09:00 36.6 C 22 H 135/107 H 95 03/08/21 08:00 36.6 C 23 H 152/118 H 94 L 03/08/21 07:00 18 158/118 H 92 L 03/08/21 06:09 86 146/101 H 03/08/21 06:00 22 H 146/101 H 95 03/08/21 05:00 16 150/100 H 94 L 03/08/21 04:00 36.3 C 18 143/106 H 92 L 03/08/21 03:00 20 140/101 H 93 L 03/08/21 02:00 17 133/95 H 90 L 03/08/21 01:00 22 H 137/69 92 L 03/08/21 00:00 36.3 C 20 151/105 H 91 L - Problem List & Annotations (1) CHF (congestive heart failure) SNOMED Code(s): 28790947 Code(s): I50.9 - HEART FAILURE, UNSPECIFIED Status: Acute Current Visit: No Qualifiers: Heart failure type: unspecified Heart failure chronicity: unspecified Qualified Code(s): I50.9 - Heart failure, unspecified (2) Atrial fibrillation with RVR SNOMED Code(s): 454416752810680 Code(s): I48.91 - UNSPECIFIED ATRIAL FIBRILLATION Status: Acute Current Visit: No (3) Diabetes SNOMED Code(s): 67324962 Code(s): E11.9 - TYPE 2 DIABETES MELLITUS WITHOUT COMPLICATIONS Status: Chronic Current Visit: Yes (4) Hypertension SNOMED Code(s): 20839210 Code(s): I10 - ESSENTIAL (PRIMARY) HYPERTENSION Status: Chronic Current Visit: Yes - Problem List Review Problem List Initiated/Reviewed/Updated: Yes - My Orders Last 24 Hours: My Active Orders 03/07/21 19:00 Metoprolol Tartrate [Lopressor] 100 mg PO Q12H 03/08/21 09:45 Diltiazem IR [Cardizem] 30 mg PO Q6HR 03/08/21 11:18 Furosemide [Lasix] 40 mg PO ONETIME ONE 03/09/21 05:11 BASIC METABOLIC PANEL,BMP [CHEM] AM CBC WITH AUTO DIFF [HEME] AM MAGNESIUM [CHEM] AM - Plan Plan:: 70 yo male admitted for atrial fibrillation with RVR and new onset CHF Atiral fibrillation with RVR: on Lovenox, diltiazem drip weaned off but no tachycardic again, will try oral diltiazem as may give better response than oral metoprolol. CHF: diuresis with Lasix, echocardiogram ordered DM: on ssi
[2021-03-08] MEDS: Diltiazem IR 30 MG Tab PO SCH ×2 (11:36→12:25)
--- NOTE | 2021-03-08 14:14 | ECHO ---
EXAM DATE: 03/05/21 PATIENT'S AGE: 70 The ECHO report has been scanned into [facility] and can be seen in this patient's EMR (Electronic Medical Record) under the REPORTS section. The report has also been scanned into PACS. LUL
[2021-03-08] MEDS ORDERED: Diltiazem IR 30 MG Tab PO SCH (18:00)
[2021-03-08] MEDS ORDERED: Diltiazem IR 30 MG Tab PO ONE (21:16)
--- NOTE | 2021-03-08 21:21 | PN ---
TH[facility] Physician - Brief Progress [id number]/11/2021 21:18[facility] Kaley Ramos, [place] - LOLISN (JERI) - MAYE ORNELASALFA [place]Date of Service 03/08/2021 21:18HPI/Events of Note Called for HR up to 110 at rest and 140-150 with activity.Chart reviewed briefly - Mr Dee h as a fib RVR, titrated off Dilt gtt on 03/08 am.On camera, he is resting in be din NAD. MAPs 90s.Plan :Ordered Ditliazem IR 30 mg po x1 now, and increase standing dose from 45 mg to 60 mg po q6h.Interven tions Intermediate-Arrhythmia - evaluation and management
[2021-03-08] MEDS ORDERED: Digoxin 500 MCG/2 ML Amp IVPUSH ONE (22:46)
[2021-03-09] MEDS: Enoxaparin 150 MG/1 ML Syringe SUBCUT SCH (02:47)
[2021-03-09] MEDS: Diltiazem IR 60 MG Tab PO SCH ×3 (05:00→11:08)
[2021-03-09 06:50] LABS: CARBON DIOXIDE,CO2 28.7 mmol/L (21.0-32.0); POTASSIUM,K 4.3 mmol/L (3.5-5.1)
[2021-03-09] MEDS: Insulin Aspart 100 Units/ML 3 ML Pen SUBCUT SCH ×2 (07:30→11:17)
[2021-03-09] MEDS ORDERED: Lisinopril 10 MG Tab PO ONE (09:40)
--- NOTE | 2021-03-09 11:37 | PCM.DCSUM1 ---
Discharge Summary - Discharge Data Discharge Date: 03/09/21 Discharge Disposition: Home, Self-Care 01 Condition: Good - Referral to Home Health Primary Care Physician: PCP None - Discharge Diagnosis/Problem(s) (1) CHF (congestive heart failure) SNOMED Code(s): 77067686 ICD Code: I50.9 - HEART FAILURE, UNSPECIFIED Status: Acute Current Visit: No Qualifiers: Heart failure type: unspecified Heart failure chronicity: unspecified Qualified Code(s): I50.9 - Heart failure, unspecified (2) Atrial fibrillation with RVR SNOMED Code(s): 367080990030608 ICD Code: I48.91 - UNSPECIFIED ATRIAL FIBRILLATION Status: Acute Current Visit: No (3) Diabetes SNOMED Code(s): 98992093 ICD Code: E11.9 - TYPE 2 DIABETES MELLITUS WITHOUT COMPLICATIONS Status: Chronic Current Visit: Yes (4) Hypertension SNOMED Code(s): 46287804 ICD Code: I10 - ESSENTIAL (PRIMARY) HYPERTENSION Status: Chronic Current Visit: Yes - Patient Summary/Data Hospital Course: 70 yo male with pmh of hypertension and diabetes who presented with several day history of palpitations and shortness of breath. He was found to be in atrial fibrillation with rapid ventricular rate in [place] ER. CT angio was negative for PE but was suggestive of CHF. H He was transferred to [place] as no beds were available in [place]. He was diuresed with lasix with quick resolution of his shortness of breath. He was treated with IV diltiazem drip. He did not respond well to oral metoprol but we were able to control his rate with oral diltiazem. He was anticoagulated with Lovenox in the hospital but at discharge will start Eliquis. He is to follow up with his primary care doctor in [place]. - Patient Instructions Diet: Regular Diet as Tolerated Activity: As Tolerated Other/Special Instructions: You were admitted for Atrial Fibrillation which is an abdnormal heart rhythm that cause a fast heart rate. We have controlled your heart rate with an oral medication Diltiazem. Please take diltiazem once a day starting this evening(03/09/21). Watch out for shortness of breath which is signs of fluid build up in lungs due to congestive heart failure which can worsen on diltiazem. As Diltazem also lowers your blood pressure. We ask that you change your Lisinopril/HCTZ combination mediaitons to lisinopril alone. Please check your blood pressure daily to ensure that your blood pressure is controlled and not to low. To prevent atrial fibrillation from causing a stroke we have prescribed Eliquis which is an anticoagulant. Watch out for signs of bleeding while on this medication. Please follow up with your primary care provider next week. - Discharge Plan Prescriptions/Med Rec: dilTIAZem HCL [Diltiazem 24Hr Cd] 240 mg PO DAILY #30 cap.er.24h Apixaban [Eliquis] 5 mg PO BID #60 tablet lisinopriL [Lisinopril] 10 mg PO DAILY #30 tablet Home Medications: Home Meds Niacin 500 mg PO DAILY 09/15/18 [History] Tamsulosin HCl 0.4 mg PO DAILY 09/15/18 [History] metFORMIN HCl [Metformin HCl] 1,000 mg PO BID 03/05/21 [History] Apixaban [Eliquis] 5 mg PO BID #60 tablet 03/09/21 [Rx] dilTIAZem HCL [Diltiazem 24Hr Cd] 240 mg PO DAILY #30 cap.er.24h 03/09/21 [Rx] lisinopriL [Lisinopril] 10 mg PO DAILY #30 tablet 03/09/21 [Rx] - Discharge Summary/Plan Comment DC Time >30 min.: No Total # of Minutes for Discharge Time: 15 - Patient Data Vitals - Most Recent: Last Vital Signs Temp 36.7 C 03/09/21 11:00 Pulse 104 H 03/08/21 22:54 Resp 19 03/09/21 11:00 BP 146/101 H 03/09/21 11:00 Pulse Ox 96 03/09/21 11:00 Weight - Most Recent: 106.367 kg I&O - Last 24 hours: Intake & Output 03/08/21 03/09/21 03/09/21 22:59 06:59 14:59 Intake Total 1000 350 Output Total 1000 500 Balance 0 -150 Lab Results - Last 24 hrs: Laboratory Results - last 24 hr 03/08/21 03/08/21 03/09/21 Range/Units 11:43 17:35 05:55 WBC 6.72 (4.0-11.0) K/uL RBC 5.22 (4.50-5.90) M/uL Hgb 16.0 (13.0-17.0) g/dL Hct 46.9 (38.0-50.0) % MCV 89.8 (80.0-98.0) fL MCH 30.7 (27.0-32.0) pg MCHC 34.1 (31.0-37.0) g/dL RDW Std Deviation 43.4 (28.0-62.0) fl RDW Coeff of Ozzy 13 (11.0-15.0) % Plt Count 182 (150-400) K/uL MPV 10.90 (7.40-12.00) fL Neut % (Auto) 53.0 (48.0-80.0) % Lymph % (Auto) 33.5 (16.0-40.0) % [place]ardo % (Auto) 10.9 (0.0-15.0) % Eos % (Auto) 1.9 (0.0-7.0) % Baso % (Auto) 0.7 (0.0-1.5) % Neut # (Auto) 3.6 (1.4-5.7) K/uL Lymph # (Auto) 2.3 (0.6-2.4) K/uL [place]ardo # (Auto) 0.7 (0.0-0.8) K/uL Eos # (Auto) 0.1 (0.0-0.7) K/uL Baso # (Auto) 0.1 (0.0-0.1) K/uL Nucleated RBC % 0.0 /100WBC Nucleated RBCs # 0 K/uL Sodium (136-148) mmol/L Potassium (3.5-5.1) mmol/L Chloride (98-107) mmol/L Carbon Dioxide (21.0-32.0) mmol/L BUN (7.0-18.0) mg/dL Creatinine (0.8-1.3) mg/dL Est Cr Clr Drug Dosing mL/min Estimated GFR (MDRD) ml/min Glucose (74-106) mg/dL POC Glucose 202 H 99 (70-99) mg/dL Calcium (8.5-10.1) mg/dL Magnesium (1.8-2.4) mg/dL 03/09/21 03/09/21 03/09/21 Range/Units 05:55 09:55 11:13 WBC (4.0-11.0) K/uL RBC (4.50-5.90) M/uL Hgb (13.0-17.0) g/dL Hct (38.0-50.0) % MCV (80.0-98.0) fL MCH (27.0-32.0) pg MCHC (31.0-37.0) g/dL RDW Std Deviation (28.0-62.0) fl RDW Coeff of Ozzy (11.0-15.0) % Plt Count (150-400) K/uL MPV (7.40-12.00) fL Neut % (Auto) (48.0-80.0) % Lymph % (Auto) (16.0-40.0) % [place] % (Auto) (0.0-15.0) % Eos % (Auto) (0.0-7.0) % Baso % (Auto) (0.0-1.5) % Neut # (Auto) (1.4-5.7) K/uL Lymph # (Auto) (0.6-2.4) K/uL [place]ardo # (Auto) (0.0-0.8) K/uL Eos # (Auto) (0.0-0.7) K/uL Baso # (Auto) (0.0-0.1) K/uL Nucleated RBC % /100WBC Nucleated RBCs # K/uL Sodium 142 (136-148) mmol/L Potassium 4.3 (3.5-5.1) mmol/L Chloride 105 (98-107) mmol/L Carbon Dioxide 28.7 (21.0-32.0) mmol/L BUN 23 H (7.0-18.0) mg/dL Creatinine 1.2 (0.8-1.3) mg/dL Est Cr Clr Drug Dosing 59.14 mL/min Estimated GFR (MDRD) 59.9 ml/min Glucose 110 H (74-106) mg/dL POC Glucose 110 H 115 H (70-99) mg/dL Calcium 8.1 L (8.5-10.1) mg/dL Magnesium 2.0 (1.8-2.4) mg/dL Med Orders - Current: Current Medications Dextrose/Water (50% Dextrose In Water 50 Ml Syringe) 50 ml IVPUSH ASDIRECTED PRN PRN Reason: Hypoglycemia Diltiazem HCl (Diltiazem Ir 60 Mg Tab) 60 mg PO Q6HR [facility] Last Admin: 03/09/21 11:08 Dose: 60 mg Documented by: Enoxaparin Sodium (Enoxaparin 150 Mg/1 Ml Syringe) 110 mg SUBCUT Q12H ASHLEY Last Admin: 03/09/21 02:47 Dose: 110 mg Documented by: Glucagon (Glucagon,Human Recombinant 1 Mg Vial) 1 mg IM ASDIRECTED PRN PRN Reason: Hypoglycemia Diltiazem HCl 100 mg/ Sodium (Chloride) 100 mls @ 5 mls/hr IV ASDIRECTED ASHLEY; Protocol Last Titration: 03/07/21 21:22 Dose: Infused Documented by: Insulin Aspart (Insulin Aspart 100 Units/Ml 3 Ml Pen) 0 unit SUBCUT TIDAC [facility]; Protocol Last Admin: 03/09/21 11:17 Dose: Not Given Documented by: Discontinued Medications Digoxin (Digoxin 500 Mcg/2 Ml Amp) 250 mcg IVPUSH ONETIME ONE Stop: 03/08/21 22:47 Last Admin: 03/08/21 22:54 Dose: 250 mcg Documented by: Diltiazem HCl (Diltiazem Ir 30 Mg Tab) 30 mg PO Q6HR [facility] Last Admin: 03/08/21 12:25 Dose: 30 mg Documented by: Diltiazem HCl (Diltiazem Ir 30 Mg Tab) 45 mg PO Q6HR ASHLEY Last Admin: 03/08/21 18:10 Dose: 45 mg Documented by: Diltiazem HCl (Diltiazem Ir 30 Mg Tab) 30 mg PO ONETIME ONE Stop: 03/08/21 21:17 Last Admin: 03/08/21 21:51 Dose: 30 mg Documented by: Enoxaparin Sodium (Enoxaparin 60 Mg/0.6 Ml Syringe) 120 mg SUBCUT Q12H [facility] Last Admin: 03/06/21 04:25 Dose: 120 mg Documented by: Furosemide (Furosemide 40 Mg/4 Ml Vial) 40 mg IVPUSH NOW ONE Stop: 03/06/21 13:27 Last Admin: 03/06/21 14:15 Dose: 40 mg Documented by: Furosemide (Furosemide 40 Mg Tab) 40 mg PO ONETIME ONE Stop: 03/07/21 09:09 Last Admin: 03/07/21 11:31 Dose: 40 mg Documented by: Furosemide (Furosemide 40 Mg Tab) 40 mg PO ONETIME ONE Stop: 03/08/21 11:19 Last Admin: 03/08/21 11:38 Dose: 40 mg Documented by: Lisinopril (Lisinopril 10 Mg Tab) 10 mg PO ONETIME ONE Stop: 03/08/21 09:35 Last Admin: 03/08/21 11:39 Dose: Not Given Documented by: Lisinopril (Lisinopril 10 Mg Tab) 10 mg PO ONETIME ONE Stop: 03/09/21 09:41 Last Admin: 03/09/21 10:15 Dose: 10 mg Documented by: Metoprolol Tartrate (Metoprolol Tartrate 25 Mg Tab) 25 mg PO BID [facility] Last Admin: 03/06/21 20:59 Dose: 25 mg Documented by: Metoprolol Tartrate (Metoprolol Tartrate 25 Mg Tab) 25 mg PO ONETIME ONE Stop: 03/06/21 17:03 Last Admin: 03/06/21 17:16 Dose: 25 mg Documented by: Metoprolol Tartrate (Metoprolol Tartrate 25 Mg Tab) 50 mg PO Q12H [facility] Last Admin: 03/07/21 08:34 Dose: 50 mg Documented by: Metoprolol Tartrate (Metoprolol Tartrate 50 Mg Tab) 100 mg PO Q12H [facility] Last Admin: 03/08/21 06:09 Dose: 100 mg Documented by: Metoprolol Tartrate (Metoprolol Tartrate 25 Mg Tab) 25 mg PO ONETIME ONE Stop: 03/07/21 12:34 Last Admin: 03/07/21 13:23 Dose: 25 mg Documented by: Potassium Chloride (Potassium Chloride 20 Meq Tab.Er) 40 meq PO ONETIME ONE Stop: 03/06/21 09:49 Last Admin: 03/06/21 11:52 Dose: 40 meq Documented by:
== END 2021-03-09 12:45 | disposition home or self-care (01) | DRG 293 ==
LOC: MW.ICU 17:41
PROVIDERS: ADMIT Student in an Organized Health Care Education/Training Program; ATTEND Student in an Organized Health Care Education/Training Program
DX: I11.0 Hypertensive heart disease with heart failure (principal); I48.91 Unspecified atrial fibrillation; I50.9 Heart failure, unspecified; E11.9 Type 2 diabetes mellitus without complications; H54.7 Unspecified visual loss; E78.00 Pure hypercholesterolemia, unspecified; M10.9 Gout, unspecified; Z79.01 Long term (current) use of anticoagulants; Z79.84 Long term (current) use of oral hypoglycemic drugs; Z79.899 Other long term (current) drug therapy; Z86.16 Personal history of COVID-19; Z86.19 Personal history of other infectious and parasitic diseases; Z98.890 Other specified postprocedural states
CPT/HCPCS: 36415; 80048; 82947; 83735; 85025; 93306; A9270-GY; J1160; J1650; J1815-GY; J1940; J3490